=== PATIENT | female | born 1955 | race Caucasian/White ===

== ENCOUNTER → 2022-03-29 08:31 | Outpatient (CLI) | payer OTHER, SELFPAY ==
--- NOTE | 2022-03-29 08:36 | DI.MRI.S_ITS ---
PROCEDURE: MR WRIST LT W CON INDICATIONS: Scapholunate ligament tear TECHNIQUE: After the administration of 3-4 mL of dilute intra-articular Gadolinium contrast into the radiocarpal compartment, coronal T1 spin echo with fat saturation and T2 fast spin echo with fat saturation, axial T1 spin echo and T2 fast spin echo with fat saturation, sagittal T1 spin echo with and without fat saturation through the wrist. COMPARISON: None. FINDINGS: Image quality: Excellent. Bones and cartilage: The carpal bones are normally aligned. There is marrow edema involving distal radius with subtle linear T1 and T2 hyperintense signal involving base of radial styloid extending to radiocarpal joint space concerning for a subtle nondisplaced fracture in this area. 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 No other fracture or dislocation. No evidence of osteonecrosis. Carpal ligaments: There is full-thickness rupture involving dorsal and central component of scapholunate ligament with contrast extending to mid carpal compartment. The lunotriquetral ligament is intact. The radioscaphocapitate and radiolunotriquetral ligaments appear intact. The arcuate ligament and short radiolunate ligament also appear normal. The dorsal intercarpal and radiotriquetral ligaments appear intact. On sagittal images, the pisohamate ligament appears intact. Triangular fibrocartilage complex: The triangular fibrocartilage disc, with its styloid and foveal lamina, appears intact. No gadolinium extravasation into the distal radioulnar joint. The adjacent meniscal homolog appears normal. The ulnar collateral ligament appears intact. The extensor carpi ulnaris tendon is normal in location and morphology. Tendons and soft tissues: The carpal tunnel structures appear normal, including the median nerve. The ulnar nerve appears normal within Guyon's canal. All six extensor tendon compartments demonstrate normal morphology, without pathologic tendon sheath fluid. No soft tissue ganglion cysts. IMPRESSION: 1. Finding is suggestive of a nondisplaced fracture through base of radial styloid with significant marrow edema and subtle cortical disruption as above. 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 No other fracture or dislocation. No evidence of avascular necrosis. 2. Suggestion of full-thickness rupture involving dorsal and volar components of scapholunate ligament with contrast extending to mid carpal compartment. Lunotriquetral ligament is intact. Rest of the extrinsic wrist ligaments are grossly intact. 3. Triangular fibrocartilage is intact. 4. Examination of extensor and flexor tendons of the wrist shows no evidence of tendinosis or tendon tear. Dictated by: Bird Allen M.D. on 03/29/2022 at 12:04 Approved by: Bird Allen M.D. on 03/29/2022 at 12:09
--- NOTE | 2022-03-29 08:36 | DI.RAD.S_ITS ---
PROCEDURE: FL WRIST INJECTION MR/CT LT INDICATIONS: Scapholunate ligament tear [facility] 1 OR 2 VIEWS BILATERAL, 03/20/2022, 11:27. Outside Film, CR, XR WRIST 3+ VIEWS LEFT, 03/12/2022, 15:49. TECHNIQUE: After informed consent had been obtained, the wrist was examined fluoroscopically, and a site chosen for injection of the radiocarpal compartment from a dorsal approach. Skin was prepped and draped in a sterile fashion and 1% lidocaine infiltrated from the skin down to the articular surface. A hypodermic needle was then introduced into the articular space and a modest amount of contrast medium was instilled confirming intra-articular needle tip placement. This was followed by approximately 2-3 mL of a dilute gadolinium solution. Needle was removed and dressing was applied. The patient experienced no complications throughout the procedure and left the fluoroscopic suite in no apparent distress. FINDINGS: A single fluoroscopic spot image demonstrates intra-articular location to injected iodinated contrast. IMPRESSION: Successful fluoroscopic-guided administration of dilute Gadolinium solution for wrist MR arthrogram. Dictated by: Akiko Menjivar M.D. on 03/29/2022 at 10:28 Approved by: Akiko Menjivar M.D. on 03/29/2022 at 10:29
== END ==
PROVIDERS: Referring Provider Orthopaedic Surgery; Visit Provider Orthopaedic Surgery
DX: S63.592A Other specified sprain of left wrist, initial encounter (principal); X58.XXXA Exposure to other specified factors, initial encounter
CPT/HCPCS: 20605; 73222; 76000

== ENCOUNTER 2022-10-02 15:20 | Emergency (ER) | payer MEDICARE, OTHER, SELFPAY ==
[2022-10-02 15:25] VITALS: BP 164/83; PULSE 85; RESP 18; TEMP 36.1; O2SAT 99; BMI 30.9
--- NOTE | 2022-10-02 15:28 | DI.RAD.S_ITS ---
PROCEDURE: XR ANKLE LT MIN 3V INDICATIONS: fall w/pain TECHNIQUE: 3 views of the ankle were acquired. COMPARISON: None. FINDINGS: Bones: Mildly displaced distal fibular fracture above the syndesmosis. Multiple bone fragments are seen adjacent to the medial malleolus. Syndesmotic widening is present on the mortise view. Soft tissues: Plantar calcaneal enthesopathy. A questionable posterior malleolar fracture is present. IMPRESSION: Mildly displaced distal fibular fracture above the syndesmosis. There is suggestion of syndesmotic widening. Multiple bone fragments adjacent to the medial malleolus, most of which are chronic, but superimposed acute avulsion injury is possible. There may also be a minimally displaced posterior malleolar fracture. If further evaluation is needed, consider stress views and/or CT. Dictated by: Jose Cleis M.D. on 10/02/2022 at 16:19 Approved by: Joes Celis M.D. on 10/02/2022 at 16:21
--- NOTE | 2022-10-02 15:29 | DI.RAD.S_ITS ---
PROCEDURE: XR FOOT LT MIN 3V INDICATIONS: fall w/pain TECHNIQUE: 3 views of the foot were acquired. COMPARISON: None. FINDINGS: Bones: Mild scattered degenerative changes, particularly at the 1st MTP. No displaced fracture or dislocation of the foot. Ankle findings are separately dictated Soft tissues: There is soft tissue swelling. IMPRESSION: No acute radiographic abnormality of the foot. Ankle findings are separately dictated. Dictated by: Jose Celis M.D. on 10/02/2022 at 16:21 Approved by: Jose Celis M.D. on 10/02/2022 at 16:22
--- NOTE | 2022-10-02 15:30 | ED_ITS ---
HPI - Extremity Injury (Lower) <Alexis Jimenez PA-C - Last Filed: 10/02/22 17:16> General Chief Complaint: Extremity Injury, Lower Stated Complaint: lt ankle injury Time Seen by Provider: 10/02/22 15:30 Source: patient Mode of arrival: Wheelchair History of Present Illness HPI Narrative: 67-year-old female presents to the ED status post an ankle injury sustained just prior to arrival. Patient states that she was walking outside, when she stepped into an unexpected pit, which caused her left ankle to twist. Patient states that she was not able to bear weight or walk on that foot after the injury. She was carried out to the car. Patient denies numbness, tingling, weakness. Patient took 500 mg of Tylenol prior to coming into the ED. Related Data Allergies Allergy/AdvReac Type Severity Reaction Status Date / Time No Known Drug Allergies Allergy Verified 10/02/22 15:25 Review of Systems <Alexis Jimenez PA-C - Last Filed: 10/02/22 17:16> Review of Systems ROS Unobtainable: All systems reviewed & are unremarkable except as noted in HPI and below Constitutional Constitutional: Denies chills, Denies fatigue, Denies fever(s), Denies frequent falls, Denies lethargy and Denies weakness Eyes Eyes: Denies change in vision, Denies eye discharge, Denies irritation and Denies loss of vision ENT Ears, Nose, Mouth, and Throat: Denies change in voice, Denies dizziness, Denies neck pain, Denies sore throat and Denies throat swelling Cardiovascular Cardiovascular: Denies chest pain, Denies irregular heart rhythm, Denies lightheadedness, Denies palpitations, Denies dyspnea, Denies dyspnea on exertion and Denies orthopnea Respiratory Respiratory: Denies cough, Denies dyspnea, Denies dyspnea on exertion and Denies wheezing Gastrointestinal Gastrointestinal: Denies abdominal pain, Denies change in bowel habits, Denies diarrhea, Denies nausea and Denies vomiting Genitourinary Genitourinary: Denies hematuria, Denies flank pain, Denies urinary incontinence and Denies urinary urgency Musculoskeletal Musculoskeletal: Denies back pain, Denies muscle weakness, Denies neck pain, Denies numbness and Denies tingling Comments: Left ankle swelling and pain. Integumentary/Breasts Skin/Breast: Denies pruritus, Denies erythema, Denies rash and Denies wounds Neurologic Neurologic: Denies behavioral changes, Denies confusion, Denies dizziness, Denies frequent falls, Denies loss of vision, Denies numbness, Denies tingling and Denies weakness Psychiatric Psychiatric: Denies anxiety, Denies behavioral changes, Denies confusion, Denies depression, Denies homicidal ideation and Denies suicidal ideation Endocrine Endocrine: Denies fatigue, Denies flushing and Denies palpitations Hematologic/Lymphatic Hematologic/Lymphatic: Denies easy bruising Allergic/Immunologic Allergic/Immunologic: Denies urticaria, Denies throat swelling and Denies wheezing Patient History <Alexis Jimenez PA-C - Last Filed: 10/02/22 17:16> Social History Smoking Status: Never smoker Smoking Status: Never smoker alcohol intake frequency: 0-2 drinks per day Alcohol type: wine Substance Use Type: does not use Exam <Alexis Jimenez PA-C - Last Filed: 10/02/22 17:16> Narrative Exam Narrative: Const General:?cooperative, healthy appearing and comfortable [facility] Head:?normal to inspection Ears:?hearing grossly normal bilaterally Nose:?external nose normal Face and sinus:?normal facial exam and sinuses nontender Mouth:?oral mucosae normal Throat:?posterior oropharynx normal Eyes General:?appearance normal, both eyes and all related structures Neck Neck:?normal visual inspection and no lymphadenopathy noted Resp Effort & Inspection:?normal respiratory effort Auscultation:?clear to auscultation bilaterally Cardio Rate:?regular rate Rhythm:?regular rhythm Musculoskeletal There is swelling, tenderness to palpation of the medial and lateral aspect of the left ankle. There is some tenderness to palpation of the base of the 2nd and 3rd metatarsal. Full range of motion. Strength and sensation intact. Patient is neurovascularly intact. Neuro General:?patient alert, patient awake and patient oriented x3 Initial Vital Signs Initial Vital Signs: Vital Signs Temperature 97 F L 10/02/22 15:25 Pulse Rate 85 10/02/22 15:25 Respiratory Rate 18 10/02/22 15:25 Blood Pressure 164/83 H 10/02/22 15:25 Pulse Oximetry 99 10/02/22 15:25 Oxygen Delivery Method Room Air 10/02/22 15:25 <DO Jayna Perez Last Filed: 10/04/22 07:44> Initial Vital Signs Initial Vital Signs: Vital Signs Temperature 97 F L 10/02/22 15:25 Pulse Rate 85 10/02/22 15:25 Respiratory Rate 18 10/02/22 15:25 Blood Pressure 164/83 H 10/02/22 15:25 Pulse Oximetry 99 10/02/22 15:25 Oxygen Delivery Method Room Air 10/02/22 15:25 Course <Alexis Jimenez PA-C - Last Filed: 10/02/22 17:16> Orders Ordered: Discontinued Medications Ibuprofen (Ibuprofen 400 Mg Tablet) 800 mg PO NOW ONE Stop: 10/02/22 15:31 Last Admin: 10/02/22 15:40 Dose: 800 mg Documented By: ENYD Vital Signs Vital signs: Vital Signs - 8 hr 10/02/22 15:25 Temperature 97 F L Pulse Rate 85 Respiratory Rate 18 Blood Pressure 164/83 H Pulse Oximetry 99 Oxygen Delivery Method Room Air <DO Jayna Perez Last Filed: 10/04/22 07:44> Orders Ordered: Discontinued Medications Ibuprofen (Ibuprofen 400 Mg Tablet) 800 mg PO NOW ONE Stop: 10/02/22 15:31 Last Admin: 10/02/22 15:40 Dose: 800 mg Documented By: ENDY Vital Signs Vital signs: Vital Signs - 8 hr 10/02/22 15:25 Temperature 97 F L Pulse Rate 85 Respiratory Rate 18 Blood Pressure 164/83 H Pulse Oximetry 99 Oxygen Delivery Method Room Air MDM - Extremity Injury (Lower) <SHAUNA Marcos Last Filed: 10/02/22 17:16> MDM Narrative Medical decision making narrative: 67-year-old female presents to the ED status post an ankle injury sustained just prior to arrival. Will obtain x-rays of the ankle and foot to rule out fracture/dislocation. Will apply ice and treat pain with 800 mg of ibuprofen. Will reassess. X-ray and CT show mildly displaced distal fibular fracture with mild comminution above the syndesmosis. There appears to be a syndesmotic injury, as well as a mildly displaced posterior malleolar fracture. Patient's symptoms improved with the ibuprofen. Dr. Allen from orthopedics was consulted, he recommends a posterior splint with side stirrups, nonweightbearing. You would like patient to call him tomorrow to schedule follow-up. Likely surgical repair. Splint applied. Patient states that she will be able to have access to a scooter for ambulation. Patient has also been provided with crutches. Patient agrees to follow-up with Dr. Perez tomorrow ED return precautions were discussed with patient. Patient verbalized understanding. Medical records reviewed: Yes Discharge Plan Departure Patient Disposition: Home Clinical Impression: Ankle fracture Instructions: DI for Ankle Fracture Activity Restrictions/Additional Instructions: You were evaluated in the ED today for a left ankle injury. It appears that you have an ankle fracture, which includes a fibular fracture, a posterior malleolar fracture and a possible medial malleolar avulsion fracture. Orthopedic surgeon Dr. Perez was consulted, he recommends applying a splint, following up with him for follow-up. Please call the [facility] tomorrow at [phone] to schedule an appointment. It is likely that you will need surgical repair for this fracture. In the meanwhile, please refrain from bearing any weight on that foot or walking. You may use a scooter or crutches to walk. You may take ibuprofen 800 mg 3 times a day with food for pain control. Return to the ED if the splint gets too tight, the signs of which are the toes feeling numb or cold or blue. Stand Alone Forms: Patient Portal/API <Teena El DO - Last Filed: 10/04/22 07:44> Cosign ED Attending Gifty Attestation: I was immediately available in the department for consultation. Documentation has been reviewed.
[2022-10-02] MEDS: IBUPROFEN 400 MG TABLET 800 MG PO (15:40)
--- NOTE | 2022-10-02 16:28 | DI.CT.S_ITS ---
PROCEDURE: CT LE LT W CON INDICATIONS: Ankle fx TECHNIQUE: Noncontrast 1-1.5 mm axial sections acquired from above the tibiotalar joint to the bottom of the calcaneus, with coronal and sagittal reformats. COMPARISON: None. FINDINGS: Image quality: Good Bones: Mildly displaced distal fibular fracture with mild comminution above the syndesmosis. There are fracture fragments in the lateral tibial plafond indicating syndesmotic injury. Mildly displaced posterior malleolar fracture. Chronic appearing bone fragments adjacent to the medial malleolus. Plantar calcaneal enthesopathy. Soft tissues: Soft tissue swelling is present. No drainable fluid collections identified. IMPRESSION: Complex ankle fractures as above. Dictated by: Jose Celis M.D. on 10/02/2022 at 17:02 Approved by: Jose Celis M.D. on 10/02/2022 at 17:05
[2022-10-02 17:10] VITALS: BP 186/88; PULSE 80; RESP 15; O2SAT 99
== END 2022-10-02 17:23 | disposition home or self-care (01) ==
PROVIDERS: Emergency Provider Student in an Organized Health Care Education/Training Program
DX: S82.402A Unspecified fracture of shaft of left fibula, initial encounter for closed fracture (principal); X50.1XXA Overexertion from prolonged static or awkward postures, initial encounter
CPT/HCPCS: 29515; 73610; 73630; 73700; 99284

== ENCOUNTER 2022-10-05 12:25 | Day surgery (SDC) | payer MEDICARE, OTHER, SELFPAY ==
[2022-10-04 07:34] VITALS: BMI 30.9
[2022-10-05] VITALS (8 sets, daily range): BP systolic 130–195; BP diastolic 81–102; PULSE 81–97; RESP 10–19; TEMP 36.3–36.5; O2SAT 96–97; BMI 30.9
--- NOTE | 2022-10-05 | DI.RAD.S_ITS ---
PROCEDURE: XR ANKLE LT 2V INDICATIONS: LT ANKLE ORIF TECHNIQUE: 2 views of the ankle were acquired. COMPARISON: [facility], CR, XR ANKLE LT MIN 3V, 10/02/2022, 15:34. FINDINGS: Fluoroscopic guidance utilized for a distal fibula ORIF. Hardware appears intact. IMPRESSION: Fluoroscopic guidance. Dictated by: Imtiaz Springer M.D. on 10/05/2022 at 16:17 Approved by: Imtiaz Springer M.D. on 10/05/2022 at 16:18
[2022-10-05] MEDS: LACTATED RINGERS 1,000 ML 42 ML IV (13:04)
--- NOTE | 2022-10-05 14:11 | PM.PREOP ---
Pre-operative Note Interval Note History & Physical reviewed/Exam performed by Physician: Yes Changes to H&P: No
[2022-10-05] MEDS: CEFAZOLIN 2 GM/100 ML PREMIX 100 ML IV (14:50)
--- NOTE | 2022-10-05 15:00 | SUR.OPER ---
Supine on padded OR bed, head on pillow, arms padded and tucked at sides, legs uncrossed, safety belt at thigh, tape over blanket over lower legs . Bump of bath blankets x 3 under left hip. Operative leg elevated with additional bath blankets. nd under control of surgeon
[2022-10-05] MEDS: BUPIVACAINE 0.5% (PF) 10 ML VIAL 20 ML INJ (15:13)
[2022-10-05] MEDS: OXYCODONE IR 5 MG TABLET PO (16:09)
--- NOTE | 2022-10-05 16:09 | PM.OP.1 ---
Operative Date/Time/Diagnoses Date of procedure: 10/05/22 Time of procedure: 16:09 Pre-op diagnosis: Left bimalleolar equivalent ankle fracture (Ramirez C fibula with posterior malleolus) Post-op diagnosis: same Procedure & Clinicians Procedure: ORIF left fibula and syndesmosis Same procedure as scheduled: Yes Indications: This is a 67-year-old female who stepped awkwardly into a hole and sustained a fracture to her left fibula and posterior malleolus and a subsequent syndesmosis disruption. She previously saw my partner. It was discussed with her that in order to restore stability of the ankle, and facilitate earlier weight-bearing, she was indicated for ORIF of her fibula and syndesmosis Surgeon: Christian Isaac Anesthesia Type: General Operative Notes Findings: Ramirez C fibula fracture Syndesmosis disruption Posterior malleolus fracture Closure Type: primary Specimen(s): none sent Prosthetic devices, grafts, tissues, transplants, or devices: Ring and Nephew 1/3 tubular plate and a suture fixation tensioning device (invisiknot) Applied: other Estimated Blood Loss (mL): 10 Blood products transfused: none Tourniquet time (min): 45 Procedure in detail: Procedure: The patient was met in the preoperative holding area and we again discussed the risks and benefits of surgery. My initials were marked on the correct left lower extremity. The patient was brought back to the operating room and transferred to the operating table. Smooth induction of anesthesia was performed. A time-out was then performed confirming the correct operative extremity with my initials. A tourniquet was applied to the upper thigh. Standard sterile prep was done with chlorhexidine. Appropriate dry time was observed. An Esmarch was used and the tourniquet was inflated to 250 mmHg. A standard lateral approach to the fibula was made using a 10 blade. The superficial peroneal nerve was identified and protected through the remainder of the case. Dissection was carried down to the bone and the fracture was encountered. This was noted to be a transverse fracture. The fracture was irrigated and cleaned using a curette. A 8 hole 1/3 tubular plate was then fashioned and placed over the fracture. Proximal and distal holes were filled in nonlocking fashion. Final fluoroscopy confirmed screw length and plate position as well as fracture reduction. Stress radiographs were then performed which demonstrated widening of the medial clear space as well as tilting of the talus. For this reason, a tight rope (Ring and nephLiveGO invisiknot) was placed across the syndesmosis using the most distal hole in the 1/3 tubular plate. This also provided compression through the plate. Stress radiographs were again performed demonstrating minimal widening of the clear space. Wounds were closed with 2-0 PDS and 2-0 nylon and dressed with Xeroform, 4x4s cast padding and then placed into a well-padded splint the patient awoke from anesthesia and was transported to the postoperative recovery unit without any issues Assisting participation: This operation could not have been safely performed (without compromising the technical results or length of the procedure) without the assistance of a skilled surgical services coordinator. The surgical services coordinator was medically necessary for proper positioning, retraction and manipulation of instruments, proper exposure, graft prep, and manipulation of tissue. Complications: none Post-operative Condition: stable Disposition: PACU Plan for aftercare: Postoperatively: For syndesmosis injury, I will have her nonweightbearing for 6 weeks followed by weight-bearing as tolerated in a boot. She will be transitioned from her splint to a boot at her 1st postoperative visit..
== END 2022-10-05 16:45 | disposition home or self-care (01) ==
PROVIDERS: PCP Family Medicine; Referring Provider Orthopaedic Surgery; Visit Provider Orthopaedic Surgery
PROC: (CPT 27792; principal; 2022-10-05 14:00)
DX: S82.842A Displaced bimalleolar fracture of left lower leg, initial encounter for closed fracture (principal); S93.432A Sprain of tibiofibular ligament of left ankle, initial encounter; W17.2XXA Fall into hole, initial encounter
CPT/HCPCS: 27792; 27829; 73600; 76000; J0690; J1100; J1885; J2405; J2704; J3010